=== PATIENT | male | born 1975 | race Two or more races ===

== ENCOUNTER 2025-01-19 06:31 | Day surgery (SDC) | payer OTHER, SELFPAY | END 2025-01-19 12:58 | disposition home or self-care (01) | LOC: GI 06:31 | PROVIDERS: ATTENDING PHYSICIAN Internal Medicine | DX: Z12.11 Encounter for screening for malignant neoplasm of colon (principal); D12.2 Benign neoplasm of ascending colon; K62.1 Rectal polyp | CPT/HCPCS: 45385; 45380; 88305 ==